=== PATIENT | male | born 1945 | race Caucasian/White ===

== ENCOUNTER → 2018-02-27 | Outpatient (CLI) | payer MEDICARE, OTHER ==
--- NOTE | 2018-02-27 18:52 | RADIOLOGY REPORT (SQ) ---
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 NUMBER OF VIEWS: Three views TECHNIQUE: Images of the mandible acquired. AP, Erica's, angled right, angled left mandible images. LIMITATIONS: Study is limited due to the patient's condition. FINDINGS: MANDIBLE: There is no definite plain film evidence for bony involvement by osteomyelitis. ORBITS: No fracture. No foreign body. SINUSES: No mucosal thickening. No air fluid levels. FACIAL BONES: No fracture. OTHER: No other significant finding. IMPRESSION: Limited study as noted above. No definite plain film evidence for bony involvement by o steomyelitis TECHNICAL DOCUMENTATION: JOB ID: [id number] [employer]- All Rights Reserved Reading location - IP/workstation name: [email or web address]
== END ==
LOC: RAD 17:11
PROVIDERS: ATTEND Family Medicine
DX: L98.494 Non-pressure chronic ulcer of skin of other sites with necrosis of bone (principal)
CPT/HCPCS: 70110